=== PATIENT | male | born 1980 | race Asian ===

== ENCOUNTER 2017-12-22 16:29 | Outpatient (CLI) | payer OTHER ==
--- NOTE | 2017-12-23 09:35 | MRI Report ---
EXAM: RIGHT ELBOW MRI WITHOUT CONTRAST EXAM DATE: 12/22/2017 05:19 PM. CLINICAL HISTORY: R ELBOW TENDONITIS. COMPARISON: None. TECHNIQUE: Multiplanar, multisequence T1-weighted and fluid-sensitive sequences of the elbow without contrast. Other: None. FINDINGS: Bones and articular surfaces: No significant joint effusion. No osteochondral lesions. No significant articular cartilage defects are seen. Marrow signal appears normal. Musculotendinous structures: Small amount of patchy increased intrasubstance signal associated with t he common extensor origin. The common flexor pronator origin appears normal. No intramuscular edema, atrophy or fatty replacement. The biceps, triceps and brachialis tendons appear intact. Ligaments: The ulnar collateral, radial collateral and lateral collateral ligaments appear intact. IMPRESSION: Mild tendinosis at the common extensor origin. [facility] MUSCULOSKELETAL RADIOLOGY SECTION Referring Provider Line: [phone] SITE ID: [id number]
== END 2017-12-22 16:30 | disposition home or self-care (01) ==
LOC: DI 16:29
PROVIDERS: ATTEND Allergy & Immunology Allergy
DX: M77.8 Other enthesopathies, not elsewhere classified (principal)

== ENCOUNTER 2018-12-29 15:45 | Outpatient (CLI) | payer OTHER | END 2018-12-29 15:46 | disposition critical access hospital (66) | LOC: EMS 15:45 | PROVIDERS: ATTEND Surgery | DX: R41.82 Altered mental status, unspecified (principal) | CPT/HCPCS: A0425; A0427 ==

== ENCOUNTER 2018-12-29 15:57 | Inpatient (IN) | payer OTHER ==
[2018-12-29] MEDS ORDERED: SODIUM CHLORIDE 0.9% 1,000 ML IV ONE ×2 (15:59→19:03)
--- NOTE | 2018-12-29 16:02 | ED Physician Documentation ---
PD HPI ALTERED MENTAL STATUS - Stated complaint Stated Complaint: OD - History obtained from History obtained from: EMS - History of Present Illness Timing - onset: Today (Within the last half hour to hour he took reportedly some number of Ambien trying to sleep. The number was variable per EMS, may be 4. There is no mention of suicidal ideation or self-harm. He presents by ambulance now fairly somnolent and I am unable to obtain any history from the patient.) Review of Systems Unable to obtain: Confused PD PAST MEDICAL HISTORY - Past Medical History Past Medical History: Yes Cardiovascular: Other (Elevated liver enzymes and PTSD) - Present Medications Home Medications: Ambulatory Orders Medication Instructions Recorded Confirmed Home Medications Unobtainable 12/29/18 12/29/18 [HOME MEDICATIONS UNOBTAINABLE] - Allergies Allergies/Adverse Reactions: Allergies Allergy/AdvReac Type Severity Reaction Status Date / Time Unable to Assess Allergy Verified 12/29/18 16:10 - Living Situation Living Situation: reports: With spouse/s.o. - Social History Does the pt drink ETOH?: Yes - Family History Family history: reports: Non contributory PD ED PE NORMAL - Vitals Vital signs reviewed: Yes - General General: Other (He is somnolent he can open his eyes briefly to verbal stimulus but then falls right back asleep.) - HEENT HEENT: PERRL - Neck Neck: Supple, no meningeal sign, No bony TTP - Cardiac Cardiac: RRR, No murmur - Respiratory Respiratory: No respiratory distress, Clear bilaterally - Abdomen Abdomen: Non tender - Back Back: No CVA TTP, No spinal TTP - Derm Derm: Normal color, Warm and dry - Extremities Extremities: No edema, No calf tenderness / cord - Neuro Eye Opening: To Voice Motor: Obeys Commands Verbal: Confused GCS Score: 13 Results - Vitals Vitals: Vital Signs - 24 hr 12/29/18 12/29/18 12/29/18 15:59 16:01 16:13 Temperature 36.9 C Heart Rate 111 H 105 H Respiratory 21 18 Rate Blood Pressure 129/74 129/74 O2 Saturation 96 98 98 12/29/18 12/29/18 12/29/18 16:26 16:40 17:10 Temperature Heart Rate 114 H 131 H 101 H Respiratory 16 18 20 Rate Blood Pressure 139/76 H 131/69 H 133/76 H O2 Saturation 98 98 97 Oxygen O2 Source Nasal cannula - EKG (time done) 1606 Rate: Rate (enter#) (112) Rhythm: NSR [place]: LAD Intervals: Normal PA QRS: Normal Ischemia: Normal ST segments Computer interpretation: Agree with computer - Labs Labs: Laboratory Tests 12/29/18 12/29/18 12/29/18 16:07 16:07 16:07 WBC 5.1 RBC 4.67 L Hgb 14.3 Hct 43.1 MCV 92.3 MCH 30.7 MCHC 33.2 RDW 12.6 Plt Count 266 MPV 8.0 Neut # (Auto) 2.0 Lymph # (Auto) 2.6 [place] # (Auto) 0.4 Eos # (Auto) 0.1 Baso # (Auto) 0.0 Absolute Nucleated RBC 0.00 Nucleated RBC % 0.1 PT 12.4 INR 1.1 Sodium 138 Potassium 3.8 Chloride 100 L Carbon Dioxide 26 Anion Gap 12.0 BUN 11 Creatinine 1.1 Estimated GFR (MDRD) 75 L Glucose 148 H Calcium 8.2 L Total Bilirubin 0.2 AST 119 H ALT 124 H Alkaline Phosphatase 115 Total Creatine Kinase 392 H Total Protein 7.7 Albumin 4.1 Globulin 3.6 Albumin/Globulin Ratio 1.1 Lipase 40 TSH Salicylates < 6.0 Acetaminophen < 10 L Ethyl Alcohol 212.3 12/29/18 16:07 WBC RBC Hgb Hct MCV MCH MCHC RDW Plt Count MPV Neut # (Auto) Lymph # (Auto) [place] # (Auto) Eos # (Auto) Baso # (Auto) Absolute Nucleated RBC Nucleated RBC % PT INR Sodium Potassium Chloride Carbon Dioxide Anion Gap BUN Creatinine Estimated GFR (MDRD) Glucose Calcium Total Bilirubin AST ALT Alkaline Phosphatase Total Creatine Kinase Total Protein Albumin Globulin Albumin/Globulin Ratio Lipase TSH 1.46 Salicylates Acetaminophen Ethyl Alcohol PD MEDICAL DECISION MAKING - ED course ED course: This is a 38-year-old gentleman presents after an intentional Ambien overdose but without reported intention of self-harm. He is obtunded but protecting his airway. He will require a prolonged period of his observation for airway monitoring and likely eventual social work consultation. Spoke with Dr. Haney for observation at 5:25 PM. Departure - Departure Disposition: ED Place in Observation Clinical Impression: Delirium Medication overdose Qualifiers: Encounter type: initial encounter Injury intent: undetermined intent Qualified Code(s): T50.904A - Poisoning by unspecified drugs, medicaments and biological substances, undetermined, initial encounter Condition: Serious
[2018-12-29 16:23] LABS: BASOPHILS % (AUTO) 0.8 %; EOSINOPHILS # (AUTO) 0.1 10^3/uL (0.0-0.7); EOSINOPHILS % (AUTO) 2.5 %; HGB - HEMOGLOBIN 14.3 g/dL (14.0-18.0); LYMPHOCYTES # (AUTO) 2.6 10^3/uL (1.5-3.5); LYMPHOCYTES % (AUTO) 50.4 %; MEAN CORPUSCULAR HEMOGLOBIN 30.7 pg (27.0-31.0); MEAN CORPUSCULAR HGB CONC 33.2 g/dL (32.0-36.0); MEAN CORPUSCULAR VOLUME 92.3 fL (80.0-94.0); MONOCYTES # (AUTO) 0.4 10^3/uL (0.0-1.0); MONOCYTES % (AUTO) 7.2 %; NEUTROPHILS % (AUTO) 39.1 %; PLT - PLATELET COUNT 266 10^3/uL (130-450); RED BLOOD COUNT 4.67 10^6/uL (4.70-6.10); RED CELL DISTRIBUTION WIDTH 12.6 % (12.0-15.0); WHITE BLOOD COUNT 5.1 x10^3/uL (4.8-10.8)
[2018-12-29 16:36] LABS: INR 1.1 (0.8-1.2); PT - PROTHROMBIN TIME 12.4 secs (9.9-12.6)
[2018-12-29 16:38] LABS: ACETAMINOPHEN < 10 ug/mL (10-30); ALBUMIN 4.1 g/dL (3.2-5.5); ALBUMIN/GLOBULIN RATIO 1.1 (1.0-2.2); ALKALINE PHOSPHATASE 115 IU/L (42-121); ALT ALANINE AMINOTRANSFERASE 124 IU/L (10-60); AST ASPARTATE AMINOTRANSFERASE 119 IU/L (10-42); BILIRUBIN,TOTAL 0.2 mg/dL (0.2-1.0); BUN - BLOOD UREA NITROGEN 11 mg/dL (6-20); CALCIUM 8.2 mg/dL (8.5-10.3); CARBON DIOXIDE - CO2 26 mmol/L (21-32); CHLORIDE 100 mmol/L (101-111); CK- CREATINE KINASE 392 IU/L (22-269); CREATININE 1.1 mg/dL (0.6-1.2); GFR - MDRD 75 (>89); GLUCOSE 148 mg/dL (70-100); LIPASE 40 U/L (22-51); SALICYLATE < 6.0 mg/dL; SODIUM 138 mmol/L (135-145); TOTAL PROTEIN 7.7 g/dL (6.7-8.2)
[2018-12-29 17:44] LABS: MUDS CUTOFF CONCENTRATIONS CUTOFF CONC BELOW:
[2018-12-29 17:48] LABS: BILIRUBIN,URINE NEGATIVE (NEGATIVE); GLUCOSE, URINE (UA) NEGATIVE (NEGATIVE); KETONES,URINE (UA) NEGATIVE (NEGATIVE); LEUKOCYTE ESTERASE, URINE NEGATIVE (NEGATIVE); NITRITE,URINE NEGATIVE (NEGATIVE); OCCULT BLOOD,URINE NEGATIVE (NEGATIVE); PROTEIN,URINE NEGATIVE (NEGATIVE); UROBILINOGEN,URINE 0.2 (NORMAL) E.U./dL (NORMAL)
[2018-12-29 17:53] LABS: CLARITY,URINE CLEAR (CLEAR)
[2018-12-29] MEDS ORDERED: ONDANSETRON ODT 4 MG TABLET TL PRN (17:54)
[2018-12-29] MEDS ORDERED: FOLIC ACID INJ 1 MG, THIAMINE INJ 100 MG, MAGNESIUM SULFATE 2 GM, MULTIVITAMIN 10 ML in... IV STA ×5 (17:54)
[2018-12-29] MEDS ORDERED: ONDANSETRON 4 MG/2 ML VIAL IVP PRN (17:54)
[2018-12-29 17:57] LABS: AMPHETAMINE SCREEN,URINE NEGATIVE (NEGATIVE); BENZODIAZEPINES SCREEN, URINE NEGATIVE (NEGATIVE); COCAINE SCREEN URINE NEGATIVE (NEGATIVE); METHADONE SCREEN, URINE NEGATIVE (NEGATIVE); METHAMPHETAMINES SCREEN, URINE NEGATIVE (NEGATIVE); OPIATE SCREEN, URINE NEGATIVE (NEGATIVE); OXYCODONE SCREEN, URINE NEGATIVE (NEGATIVE); PROPOXYPHENE SCREEN, URINE NEGATIVE (NEGATIVE); TRICYCLIC ANTIDEPRESSANT,URINE NEGATIVE (NEGATIVE)
[2018-12-29] MEDS ORDERED: SODIUM CHLORIDE 0.9% 1,000 ML IV SCH (18:00)
[2018-12-29] MEDS: CHLORHEXIDINE GLUCONATE 15 ML UDC PO SCH (20:52)
--- NOTE | 2018-12-29 21:05 | HISTORY & PHYSICAL EXAMINATION ---
DATE OF SERVICE: 12/29/2018 Physician: Lissy Haney MD PRIMARY CARE PHYSICIAN: [facility]. ADMITTING PROVIDER: Lissy Haney MD CHIEF COMPLAINT: Confusion, slurred speech, stumbling gait. HISTORY OF PRESENT ILLNESS: This gentleman is a 38-year-old [place] who has PTSD, chronic pain syndro me, depression with a history of alcohol abuse. Unfortunately, he has not seen a provider in maybe a couple of years, according to his . He has not been following up with his psychiatrist for his PTSD. He drinks up to a 6 pack a day of beer, and occasionally adds a medium box of chardonnay on to p of that. He occasionally smokes cigarettes with his drinking, but mainly chews tobacco all day genaro g. He has obstructive sleep apnea and is supposed to be wearing a CPAP mask. In combination of his alcohol abuse, and his drugs, his will find him at times stumbling around at night, confused. He is looking for his pills because he has forgotten that he has taken them. Ma ny times she has been able to direct his attention and prompt him to do something else when she tells him that she gave him his pills. He just forgot. This time, she came home and found him stumbling around the house, again looking for pills. Going through the medicine cabinet. He just wanted to sl eep. As the afternoon progressed, his said that he was getting sleepier, more and more slurred speech, and unable to be aroused. She says this is the worst he has ever been and it alarmed her. S he brought him to the emergency room. In the emergency room, he was evaluated by Dr. Casillas. He has been tachycardic, starting to have mild hypertension as the evening has gone on. He started out at 129 systolic and is now up to 148 systolic. Respiratory rate is sonorous, episodes of apnea, severe snoring. Rate is about 18-20. He is 96-98% on 2 liters nasal cannula. Initially, he was able to gi ve a few simple word answers to the triage nurse, but as the afternoon has gone on with Dr. Casillas, t he patient is getting increasingly somnolent and right now we are unable to arouse him as he sleeps w ith horrific snoring. His labs show him to have elevated liver enzymes with AST 119, ALT 124. Bilir ubin is normal. CBC is normal. INR is 1.1. Urinalysis is normal. Toxicology screen has ethyl alco hol of 212.3 with positive cannabinoids and all else negative. The drug list of what he may have edgar en accidentally is Ambien, duloxetine, prazosin, gabapentin and then on top of this, his alcohol. He is now admitted for accidental overdose of polysubstances. PAST MEDICAL HISTORY 1. Hypertension. 2. Posttraumatic stress disorder. 3. Obstructive sleep apnea. 4. Obesity since fpc. 5. Chronic pain syndrome from head-to-toe for which he is 100% service connected. 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 MEDICATIONS: Unknown doses of Ambien, duloxetine, prazosin, gabapentin and alcohol. His knows that he takes 3 gabapentin 3 times a day. SOCIAL HISTORY: He lives with his . They have been for 21 years. He is retired [employer]. 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 They have 2 children who are 17 and 19. Alcohol abuse is reviewed as above. Again, tobacco use is reviewed a s above. He does occasional cannabis. No history of cocaine, heroin, LSD, methamphetamines. She relates that it has been increasingly difficult to be in this marriage. While he has never been physically abusive, his acute intoxication results in verbal assessment of she and the kids. It is g etting to the point where they want nothing to do with him. He is drunk all the time and disengaged from family when he is home and not working. FAMILY HISTORY: Mom at age 53 of heart failure after a valve replacement failed. Dad at age 50 of a sudden heart attack. He has 3 sisters and 1 brother. They are all drink, they all smoke. There is no history of diabetes , cancer, heart attack, or stroke in them. The 17 and 19-year-old children are healthy. REVIEW OF SYSTEMS: Unobtainable at this time. The above history is obtained from his . The pat iesenthil is currently unresponsive other than to deep sternal rub. He will occasionally move his extremi ties spontaneously, but not able to answer my questions. PHYSICAL EXAMINATION VITAL SIGNS: Temperature is 36.9, pulse is 109, blood pressure 148/66, respirations 16, he is 99% sa turated on 2 L. GENERAL: He is a tall, morbidly obese [place] male, unshaven, disheveled, lying at about 25-30 degree s with deep snoring respirations and occasional 15 seconds of apnea. HEAD AND NECK: Unremarkable other than dry oral mucosa, but otherwise pink. Slack, but symmetrical facial tone. Pupils are sluggish, but reactive. Sclerae muddy and injected, but no icterus. Neck i s too thick to assess for JVD. There is no stiffness. I do not feel adenopathy. I cannot hear anyt cristy above his snoring to listen for bruits. LUNGS: Diminished breath sounds at the bases, there is no increased respiratory effort. Most of his breath sounds I can hear in the upper back and are clear. CARDIAC: Distant cardiac tones, I cannot feel his PMI. He has a fast regular rate and rhythm. I do not hear murmurs. ABDOMEN: Huge, pannus obese, soft, normal hypoactive bowel sounds. I do not feel any hepatomegaly, but his pannus is too large for me to really assess for organ enlargement. There does not seem to be any rebound or grimacing of pain as I do deep palpation. EXTREMITIES: Bilateral lateral vertical scars on either side of his calves. His said that he s eemed to have had some type of muscle release that I think she is describing a fasciotomy because of bilateral leg edema that was so severe he was losing circulation in his calves. Right now, he has fi rm musculature. No clubbing, cyanosis or edema. Occasional tattoos. NEUROLOGIC: This gentleman is responsive to deep sternal rub. Occasionally, he opens his eyes to hi s 's voice and grunts and then goes back to sleep. He was more verbal earlier when he came in. Spontaneously, he does move his extremities when he wants to make himself comfortable in his sleep. He will push away noxious stimuli. He will bend and relax his knees in an effort to get comfortable on this gurney that is tiny in the ER. LABORATORY DATA: CBC is normal. INR 1.1. Sodium 138, potassium 3.8, chloride 100, BUN 11, creatini ne 1.1, random glucose 148. Total bilirubin 0.2, AST 119, ALT 124, alkaline phosphatase 115. CK 392 . TSH 1.46. Urinalysis completely negative. Toxicology screen as above. ASSESSMENT/PLAN 1. Acute metabolic encephalopathy secondary to polysubstance use. The culprit will be mixing of all of his drugs plus alcohol. He is deeply asleep, snores. I do not think a CT of the head is in orde r. There is no evidence of infection. There is no severe electrolyte abnormality. PLAN a. Acute inpatient stay. b. Attestation that the patient will be evaluated within 96 hours for discharge. c. Supportive care until encephalopathy resolves. 2. Polysubstance overdose with the above medications on his medication list. Then, on top of that a lcohol. PLAN: We will do an EKG tomorrow morning to make sure QT is not prolonged. He will stay on telemetr y. We will need to monitor his blood pressure for the prazosin effects resulting in hypotension and tachycardia. Supportive care for that is just simple IV fluids. We will monitor for seizures becaus e of drug interaction. Consider giving magnesium if EKG becomes abnormal or he begins having arrhyth mias. 3. Obstructive sleep apnea. Has a home CPAP mask. PLAN: I have asked the to return to home. I explained to her that if she can bring in his CPAP mask, he can stay on med/surg. However, if she cannot bring back the CPAP mask, I am going to have to place him in ICU for our use of BiPAP or CPAP. 4. Posttraumatic stress disorder, depression, and lack of followup with Psychiatry with noncomplianc e. PLAN: Once he is awake, consider tele/psych opinion. I will also try and find his psychiatrist and update him. 5. Elevated liver function studies. PLAN: Most likely from alcoholic hepatitis. Monitor levels tomorrow. Check acute hepatitis panel f or hepatitis A, B and C. He does not have a risk because of IV drug abuse, nor has he received any r ecent blood transfusion. Check ultrasound. His large pannus may make it difficult for them to do an ultrasound. Nevertheless, look for signs of cirrhosis. 6. Acute alcohol intoxication by laboratory values. PLAN: a. As above, ultrasound, check for cirrhosis. b. Give a banana bag. c. Has never gone through withdrawals, but his comments that he has never stopped drinking to go through withdrawals. Considering he is going to be in the hospital for the next 48 hours, we w ill closely monitor. Move to ICU for CIWA protocol if requires Ativan drip. 7. Deep venous thrombosis prophylaxis with Lovenox. 8. FULL CODE STATUS. TD: 12/29/2018 18:50
[2018-12-30] MEDS: SODIUM CHLORIDE FLUSH 0.9% 10 ML SYRINGE IVP SCH ×3 (00:27→20:04)
[2018-12-30 06:00] LABS: BASOPHILS % (AUTO) 0.5 %; EOSINOPHILS # (AUTO) 0.2 10^3/uL (0.0-0.7); EOSINOPHILS % (AUTO) 2.2 %; LYMPHOCYTES # (AUTO) 2.2 10^3/uL (1.5-3.5); LYMPHOCYTES % (AUTO) 25.5 %; MEAN CORPUSCULAR HEMOGLOBIN 30.4 pg (27.0-31.0); MEAN CORPUSCULAR HGB CONC 33.1 g/dL (32.0-36.0); MEAN CORPUSCULAR VOLUME 91.9 fL (80.0-94.0); MEAN PLATELET VOLUME 7.9 fL (7.4-11.4); MONOCYTES # (AUTO) 0.6 10^3/uL (0.0-1.0); MONOCYTES % (AUTO) 6.8 %; NEUTROPHILS # (AUTO) 5.7 10^3/uL (1.5-6.6); PLT - PLATELET COUNT 255 10^3/uL (130-450); RED BLOOD COUNT 4.61 10^6/uL (4.70-6.10); RED CELL DISTRIBUTION WIDTH 12.6 % (12.0-15.0); WHITE BLOOD COUNT 8.8 x10^3/uL (4.8-10.8)
[2018-12-30 06:08] LABS: ALBUMIN 3.9 g/dL (3.2-5.5); ALBUMIN/GLOBULIN RATIO 1.2 (1.0-2.2); CALCIUM 8.3 mg/dL (8.5-10.3); CREATININE 0.8 mg/dL (0.6-1.2); TOTAL PROTEIN 7.1 g/dL (6.7-8.2)
[2018-12-30] MEDS: PANTOPRAZOLE 40 MG VIAL IVP SCH (06:54)
[2018-12-30] MEDS: SODIUM CHLORIDE FLUSH 0.9% 10 ML SYRINGE IVP PRN ×2 (06:55→09:12)
--- NOTE | 2018-12-30 07:45 | PROVIDER PROGRESS NOTE ---
Subjective - Prog Note Date Prog Note Date: 12/30/18 Prog Note Time: 07:43 - Subjective Subjective: still sedated. sleepy. does respond to sternal rub. brought in CPAP mask and we are using it even during the day since he is sleeping. Current Medications - Current Medications Current Medications: Active Medications Chlorhexidine Gluconate (Peridex) 15 ml PO BID [facility] Last Admin: 12/29/18 20:52 Dose: Not Given Enoxaparin Sodium (Lovenox) 40 mg SUBQ DAILY [facility] Multivitamins 10 ml/ Folic Acid 1 mg/ Thiamine HCl 100 mg / Magnesium Sulfate 2 gm/Sodium Chloride 1,015.2 mls @ 100 mls/hr IV DAILY [facility] Ondansetron HCl (Zofran Inj) 4 mg IVP Q6HR PRN PRN Reason: Nausea / Vomiting Ondansetron HCl (Zofran Odt) 4 mg TL Q6HR PRN PRN Reason: Nausea / Vomiting Pantoprazole Sodium (Protonix) 40 mg IVP QDAC [facility] Last Admin: 12/30/18 06:54 Dose: 40 mg Polyethylene Glycol (Miralax) 17 gm PO DAILY [facility] Sodium Chloride (Normal Saline Flush 0.9%) 10 ml IVP PRN PRN PRN Reason: NEEDED PER PROVIDER ORDERS Last Admin: 12/30/18 06:55 Dose: 10 ml Sodium Chloride (Normal Saline Flush 0.9%) 10 ml IVP 0100,0900,1700 [facility] Last Admin: 12/30/18 06:54 Dose: 10 ml Tamsulosin HCl (Flomax) 0.4 mg PO DAILY [facility] Home Medications Unobtainable [HOME MEDICATIONS UNOBTAINABLE] 12/29/18 Objective - Vital Signs/Intake & Output Reviewed Vital Signs: Yes Vital Signs: Vital Signs x48h Temp Pulse Resp BP Pulse Ox 12/30/18 05:36 36.7 C 113 H 18 130/73 95 Intake & Output: Intake & Output 12/27/18 12/28/18 12/29/18 12/30/18 23:59 23:59 23:59 23:59 Intake Total 587.5 Output Total 1050 1500 Balance -462.5 -1500 - Objective General Appearance: positive: No acute distress, Lethargic (does squint at voice request to open eyes. no longer with the very very loud snoring.) Eyes Bilateral: positive: PERRL ENT: positive: Dry mucous membranes Neck: positive: No JVD, Lymphadenopathy (R), Lymphadenopathy (L). negative: Stiff neck, Carotid bruit Respiratory: positive: Chest non-tender, No respiratory distress (dimished sounds at bases). negative: Wheezes, Rales, Rhonchi Cardiovascular: positive: Regular rate & rhythm. negative: Gallop/S4, Friction rub Abdomen: positive: Non-tender, Nml bowel sounds, No distention. negative: Guarding, Rebound Skin: positive: Warm, Dry Extremities: positive: Full ROM, No pedal edema Neurologic/Psychiatric: positive: Other (sleeping, sedated. responds to voice sometimes, def responds to sternal rub and gets annoyed.) - Lab Results Fish Bones: 12/30/18 05:45 12/30/18 05:45 Other Labs: Lab Results x24hrs 12/30/18 12/30/18 12/29/18 Range/Units 05:45 05:45 17:30 WBC 8.8 (4.8-10.8) x10^3/uL RBC 4.61 L (4.70-6.10) 10^6/uL Hgb 14.0 (14.0-18.0) g/dL Hct 42.3 (42.0-52.0) % MCV 91.9 (80.0-94.0) fL MCH 30.4 (27.0-31.0) pg MCHC 33.1 (32.0-36.0) g/dL RDW 12.6 (12.0-15.0) % Plt Count 255 (130-450) 10^3/uL MPV 7.9 (7.4-11.4) fL Neut # (Auto) 5.7 (1.5-6.6) 10^3/uL Lymph # (Auto) 2.2 (1.5-3.5) 10^3/uL [place] # (Auto) 0.6 (0.0-1.0) 10^3/uL Eos # (Auto) 0.2 (0.0-0.7) 10^3/uL Baso # (Auto) 0.0 (0.0-0.1) 10^3/uL Absolute Nucleated RBC 0.01 x10^3/uL Nucleated RBC % 0.1 /100WBC PT (9.9-12.6) secs INR (0.8-1.2) Sodium 137 (135-145) mmol/L Potassium 3.8 (3.5-5.0) mmol/L Chloride 104 (101-111) mmol/L Carbon Dioxide 22 (21-32) mmol/L Anion Gap 11.0 (6-13) BUN 13 (6-20) mg/dL Creatinine 0.8 (0.6-1.2) mg/dL Estimated GFR (MDRD) 108 (>89) Glucose 129 H (70-100) mg/dL Calcium 8.3 L (8.5-10.3) mg/dL Total Bilirubin 1.0 (0.2-1.0) mg/dL AST 86 H (10-42) IU/L ALT 102 H (10-60) IU/L Alkaline Phosphatase 90 (42-121) IU/L Total Creatine Kinase (22-269) IU/L Total Protein 7.1 (6.7-8.2) g/dL Albumin 3.9 (3.2-5.5) g/dL Globulin 3.2 (2.1-4.2) g/dL Albumin/Globulin Ratio 1.2 (1.0-2.2) Lipase (22-51) U/L TSH (0.34-5.60) uIU/mL Urine Color YELLOW Urine Clarity CLEAR (CLEAR) Urine pH 6.0 (5.0-7.5) PH Ur Specific [place] 1.020 (1.002-1.030) Urine Protein NEGATIVE (NEGATIVE) mg/dL Urine Glucose (UA) NEGATIVE (NEGATIVE) mg/dL Urine Ketones NEGATIVE (NEGATIVE) mg/dL Urine Occult Blood NEGATIVE (NEGATIVE) Urine Nitrite NEGATIVE (NEGATIVE) Urine Bilirubin NEGATIVE (NEGATIVE) Urine Urobilinogen 0.2 (NORMAL) (NORMAL) E.U./dL Ur Leukocyte Esterase NEGATIVE (NEGATIVE) Ur Microscopic Review NOT INDICATED Urine Culture Comments NOT INDICATED Salicylates mg/dL Urine Opiates Screen NEGATIVE (NEGATIVE) Ur Oxycodone Screen NEGATIVE (NEGATIVE) Urine Methadone Screen NEGATIVE (NEGATIVE) Ur Propoxyphene Screen NEGATIVE (NEGATIVE) Acetaminophen (10-30) ug/mL Ur Barbiturates Screen NEGATIVE (NEGATIVE) Ur Tricyclics Screen NEGATIVE (NEGATIVE) Ur Phencyclidine Scrn NEGATIVE (NEGATIVE) Ur Amphetamine Screen NEGATIVE (NEGATIVE) U Methamphetamines Scrn NEGATIVE (NEGATIVE) U Benzodiazepines Scrn NEGATIVE (NEGATIVE) Urine Cocaine Screen NEGATIVE (NEGATIVE) U Cannabinoids Screen POSITIVE H (NEGATIVE) Ethyl Alcohol mg/dL 12/29/18 12/29/18 12/29/18 Range/Units 16:07 16:07 16:07 WBC (4.8-10.8) x10^3/uL RBC (4.70-6.10) 10^6/uL Hgb (14.0-18.0) g/dL Hct (42.0-52.0) % MCV (80.0-94.0) fL MCH (27.0-31.0) pg MCHC (32.0-36.0) g/dL RDW (12.0-15.0) % Plt Count (130-450) 10^3/uL MPV (7.4-11.4) fL Neut # (Auto) (1.5-6.6) 10^3/uL Lymph # (Auto) (1.5-3.5) 10^3/uL [place] # (Auto) (0.0-1.0) 10^3/uL Eos # (Auto) (0.0-0.7) 10^3/uL Baso # (Auto) (0.0-0.1) 10^3/uL Absolute Nucleated RBC x10^3/uL Nucleated RBC % /100WBC PT 12.4 (9.9-12.6) secs INR 1.1 (0.8-1.2) Sodium 138 (135-145) mmol/L Potassium 3.8 (3.5-5.0) mmol/L Chloride 100 L (101-111) mmol/L Carbon Dioxide 26 (21-32) mmol/L Anion Gap 12.0 (6-13) BUN 11 (6-20) mg/dL Creatinine 1.1 (0.6-1.2) mg/dL Estimated GFR (MDRD) 75 L (>89) Glucose 148 H (70-100) mg/dL Calcium 8.2 L (8.5-10.3) mg/dL Total Bilirubin 0.2 (0.2-1.0) mg/dL AST 119 H (10-42) IU/L ALT 124 H (10-60) IU/L Alkaline Phosphatase 115 (42-121) IU/L Total Creatine Kinase 392 H (22-269) IU/L Total Protein 7.7 (6.7-8.2) g/dL Albumin 4.1 (3.2-5.5) g/dL Globulin 3.6 (2.1-4.2) g/dL Albumin/Globulin Ratio 1.1 (1.0-2.2) Lipase 40 (22-51) U/L TSH 1.46 (0.34-5.60) uIU/mL Urine Color Urine Clarity (CLEAR) Urine pH (5.0-7.5) PH Ur Specific [place] (1.002-1.030) Urine Protein (NEGATIVE) mg/dL Urine Glucose (UA) (NEGATIVE) mg/dL Urine Ketones (NEGATIVE) mg/dL Urine Occult Blood (NEGATIVE) Urine Nitrite (NEGATIVE) Urine Bilirubin (NEGATIVE) Urine Urobilinogen (NORMAL) E.U./dL Ur Leukocyte Esterase (NEGATIVE) Ur Microscopic Review Urine Culture Comments Salicylates < 6.0 mg/dL Urine Opiates Screen (NEGATIVE) Ur Oxycodone Screen (NEGATIVE) Urine Methadone Screen (NEGATIVE) Ur Propoxyphene Screen (NEGATIVE) Acetaminophen < 10 L (10-30) ug/mL Ur Barbiturates Screen (NEGATIVE) Ur Tricyclics Screen (NEGATIVE) Ur Phencyclidine Scrn (NEGATIVE) Ur Amphetamine Screen (NEGATIVE) U Methamphetamines Scrn (NEGATIVE) U Benzodiazepines Scrn (NEGATIVE) Urine Cocaine Screen (NEGATIVE) U Cannabinoids Screen (NEGATIVE) Ethyl Alcohol 212.3 mg/dL 12/29/18 Range/Units 16:07 WBC 5.1 (4.8-10.8) x10^3/uL RBC 4.67 L (4.70-6.10) 10^6/uL Hgb 14.3 (14.0-18.0) g/dL Hct 43.1 (42.0-52.0) % MCV 92.3 (80.0-94.0) fL MCH 30.7 (27.0-31.0) pg MCHC 33.2 (32.0-36.0) g/dL RDW 12.6 (12.0-15.0) % Plt Count 266 (130-450) 10^3/uL MPV 8.0 (7.4-11.4) fL Neut # (Auto) 2.0 (1.5-6.6) 10^3/uL Lymph # (Auto) 2.6 (1.5-3.5) 10^3/uL [place] # (Auto) 0.4 (0.0-1.0) 10^3/uL Eos # (Auto) 0.1 (0.0-0.7) 10^3/uL Baso # (Auto) 0.0 (0.0-0.1) 10^3/uL Absolute Nucleated RBC 0.00 x10^3/uL Nucleated RBC % 0.1 /100WBC PT (9.9-12.6) secs INR (0.8-1.2) Sodium (135-145) mmol/L Potassium (3.5-5.0) mmol/L Chloride (101-111) mmol/L Carbon Dioxide (21-32) mmol/L Anion Gap (6-13) BUN (6-20) mg/dL Creatinine (0.6-1.2) mg/dL Estimated GFR (MDRD) (>89) Glucose (70-100) mg/dL Calcium (8.5-10.3) mg/dL Total Bilirubin (0.2-1.0) mg/dL AST (10-42) IU/L ALT (10-60) IU/L Alkaline Phosphatase (42-121) IU/L Total Creatine Kinase (22-269) IU/L Total Protein (6.7-8.2) g/dL Albumin (3.2-5.5) g/dL Globulin (2.1-4.2) g/dL Albumin/Globulin Ratio (1.0-2.2) Lipase (22-51) U/L TSH (0.34-5.60) uIU/mL Urine Color Urine Clarity (CLEAR) Urine pH (5.0-7.5) PH Ur Specific [place] (1.002-1.030) Urine Protein (NEGATIVE) mg/dL Urine Glucose (UA) (NEGATIVE) mg/dL Urine Ketones (NEGATIVE) mg/dL Urine Occult Blood (NEGATIVE) Urine Nitrite (NEGATIVE) Urine Bilirubin (NEGATIVE) Urine Urobilinogen (NORMAL) E.U./dL Ur Leukocyte Esterase (NEGATIVE) Ur Microscopic Review Urine Culture Comments Salicylates mg/dL Urine Opiates Screen (NEGATIVE) Ur Oxycodone Screen (NEGATIVE) Urine Methadone Screen (NEGATIVE) Ur Propoxyphene Screen (NEGATIVE) Acetaminophen (10-30) ug/mL Ur Barbiturates Screen (NEGATIVE) Ur Tricyclics Screen (NEGATIVE) Ur Phencyclidine Scrn (NEGATIVE) Ur Amphetamine Screen (NEGATIVE) U Methamphetamines Scrn (NEGATIVE) U Benzodiazepines Scrn (NEGATIVE) Urine Cocaine Screen (NEGATIVE) U Cannabinoids Screen (NEGATIVE) Ethyl Alcohol mg/dL Assessment/Plan - Problem List (1) Acute metabolic encephalopathy Impression: secondary to polysubstance abuse and accidental OD. Change on exam is more response to voice and noxious stimuli. Able to state a few words now and didn't yesterday. No snoring today. So slowly improving. Plan: Supportive care to continue (2) Medication overdose Impression: from prazosin, cymbalta, gabapentin, ambien. He has been on telemetry, IV fluids. So far QT interval is stable and is shorter than last nice interval on EKG. This morning the EKG stable. Telemetry shows no arrhythmia.No seizures Plan: Stop telemetry, continue IV fluids until more awake and eating p.o. Qualifiers: Encounter type: initial encounter Injury intent: accidental or unintentional Qualified Code(s): T50.901A - Poisoning by unspecified drugs, medicaments and biological substances, accidental (unintentional), initial encounter (3) RAFAT on CPAP Impression: brought in mask from home. He has been on it since he was here last night. Continue until able to sit up and be conversant on his own without sleepiness. (4) Alcohol intoxication Impression: Repeat alcohol level for today. So far it remains uncomplicated. I really do feel he can go into delirium tremens as this is the first time is been without alcohol in decades as far as his is concerned. So far his blood pressures controlled, no diaphoresis, minimal tachycardia Plan: Continue banana bag Continue to monitor to make sure he does not going to delirium tremens. Qualifiers: Complication of substance-induced condition: uncomplicated Qualified Code(s): F10.920 - Alcohol use, unspecified with intoxication, uncomplicated (5) PTSD (post-traumatic stress disorder) Impression: Wait for him to wake up and then resume his usual medications. is not identified who his psychiatrist is that I may make contact with them. We will try again today. (6) Hyperglycemia Impression: He has most likely alcoholic liver disease. Overweight. Would not be surprised if he has diabetes. Plan: A1c in the morning (7) Alcoholic hepatitis Impression: He has elevated liver enzymes that I presume are from alcohol abuse. Acute hepatitis panel for A, B, and C is pending. I would like to do an ultrasound to make sure he does not have cirrhosis. Qualifiers: Ascites presence: without ascites Qualified Code(s): K70.10 - Alcoholic hepatitis without ascites
[2018-12-30] MEDS: CHLORHEXIDINE GLUCONATE 15 ML UDC PO SCH ×2 (08:14→20:04)
[2018-12-30] MEDS: TAMSULOSIN 0.4 MG CAPSULE PO SCH (08:14)
[2018-12-30] MEDS: ENOXAPARIN 40 MG/0.4 ML SYRINGE SUBQ SCH (08:15)
[2018-12-30] MEDS: MULTIVITAMIN 10 ML, FOLIC ACID INJ 1 MG, THIAMINE INJ 100 MG, MAGNESIUM SULFATE 2 GM in... IV SCH ×5 (09:08)
[2018-12-30] MEDS: POLYETHYLENE GLYCOL 3350 17 GM PACKET PO SCH (09:16)
[2018-12-30] MEDS ORDERED: METHOCARBAMOL 500 MG TABLET PO PRN (15:18)
[2018-12-30] MEDS ORDERED: NAPROXEN 250 MG TABLET PO PRN (15:18)
[2018-12-30] MEDS: PROPRANOLOL 10 MG TABLET PO SCH (20:03)
[2018-12-30] MEDS ORDERED: PRAZOSIN 1 MG CAPSULE PO SCH (21:00)
[2018-12-30] MEDS: GABAPENTIN 300 MG CAPSULE PO SCH (21:36)
[2018-12-31] MEDS: SODIUM CHLORIDE FLUSH 0.9% 10 ML SYRINGE IVP SCH ×2 (01:07→08:57)
--- NOTE | 2018-12-31 04:07 | Ultrasound Report ---
Reason: alcohol abuse, elev LFT, Procedure Date: 12/31/2018 Accession Number: [id number] / [id number] Procedure: US - Abdomen Complete CPT Code: FULL RESULT: EXAM: ABDOMEN ULTRASOUND EXAM DATE: 12/31/2018 03:33 AM. CLINICAL HISTORY: Alcohol abuse, abnormal LFT. COMPARISON: None. TECHNIQUE: Real-time scanning was performed with static images obtained. FINDINGS: Liver: Echogenic and heterogeneous. Echodense. 15.1 cm. Main portal vein flow: Hepatopetal. Gallbladder: Normal. No stones, wall thickening, or sonographic Amador's sign. Biliary System: Common bile duct measures 4.2 mm. No intrahepatic or extrahepatic ductal dilatation. Pancreas: Not well seen due to bowel gas. Kidneys: Right: 12.8 cm longitudinally. Normal. No contour-deforming mass, stones, or hydronephrosis. Left: 12.2 cm longitudinally. Normal. No contour-deforming mass, stones, or hydronephrosis. Spleen: 12.3 cm. Normal in size and echotexture. Aorta and Inferior Vena Cava: Unremarkable where seen. Other: Images are somewhat degraded due to bowel gas. IMPRESSION: 1. No cholelithiasis or cholecystitis identified. 2. Fatty liver. 3. No biliary dilatation seen. [facility]
[2018-12-31 05:48] LABS: BASOPHILS # (AUTO) 0.1 10^3/uL (0.0-0.1); BASOPHILS % (AUTO) 0.7 %; EOSINOPHILS # (AUTO) 0.3 10^3/uL (0.0-0.7); EOSINOPHILS % (AUTO) 3.9 %; HGB - HEMOGLOBIN 14.2 g/dL (14.0-18.0); LYMPHOCYTES # (AUTO) 2.5 10^3/uL (1.5-3.5); LYMPHOCYTES % (AUTO) 32.7 %; MEAN CORPUSCULAR HEMOGLOBIN 31.3 pg (27.0-31.0); MEAN CORPUSCULAR HGB CONC 34.2 g/dL (32.0-36.0); MEAN CORPUSCULAR VOLUME 91.5 fL (80.0-94.0); MONOCYTES # (AUTO) 0.7 10^3/uL (0.0-1.0); MONOCYTES % (AUTO) 9.2 %; NEUTROPHILS % (AUTO) 53.5 %; PLT - PLATELET COUNT 254 10^3/uL (130-450); RED BLOOD COUNT 4.53 10^6/uL (4.70-6.10); RED CELL DISTRIBUTION WIDTH 12.3 % (12.0-15.0); WHITE BLOOD COUNT 7.5 x10^3/uL (4.8-10.8)
[2018-12-31 05:55] LABS: ALBUMIN 3.9 g/dL (3.2-5.5); ALBUMIN/GLOBULIN RATIO 1.1 (1.0-2.2); BILIRUBIN,TOTAL 1.1 mg/dL (0.2-1.0); CALCIUM 9.1 mg/dL (8.5-10.3); CREATININE 0.9 mg/dL (0.6-1.2); TOTAL PROTEIN 7.3 g/dL (6.7-8.2)
[2018-12-31 05:58] LABS: HB2 TOTAL 15.5 g/dL; HEMOGLOBIN A1C 0.72 g/dL; HEMOGLOBIN A1C % 6.4 % (4.6-6.2)
[2018-12-31] MEDS: GABAPENTIN 300 MG CAPSULE PO SCH (07:14)
[2018-12-31] MEDS: PANTOPRAZOLE 40 MG VIAL IVP SCH (07:15)
[2018-12-31 07:46] VITALS: BP 141/100
[2018-12-31] MEDS: PROPRANOLOL 10 MG TABLET PO SCH (08:54)
[2018-12-31] MEDS: TAMSULOSIN 0.4 MG CAPSULE PO SCH (08:54)
[2018-12-31] MEDS: ENOXAPARIN 40 MG/0.4 ML SYRINGE SUBQ SCH (08:55)
[2018-12-31] MEDS: POLYETHYLENE GLYCOL 3350 17 GM PACKET PO SCH (08:55)
--- NOTE | 2018-12-31 08:55 | Discharge Plan ---
Discharge Plan Disposition: Home, Self Care Condition: Good Prescriptions: Folic Acid 1 mg PO DAILY #100 tablet Thiamine [Vitamin B-1] 100 mg PO DAILY #100 tablet traZODone [Desyrel] 50 mg PO HS #60 tablet Diet: Diabetic Activity Restrictions: Activity as Tolerated Shower Restrictions: No Driving Restrictions: No Additional Instructions or Follow Up instructions: You were admitted to the hospital because you were unconscious. A combination of alcohol, too much of your sleeping medicine (ambien), and your PTSD medicines caused you to go to sleep and not wake up. The main concern with that is that you will stop breathing. Fortunately, your found you in time, brought you into the hospital. All we did was watch you and give you your CPAP mask to help your breathing. You woke up on your own and did well. Do not take anymore Ambien. Do not drink any alcohol. I am giving you a new medicine to help you sleep at night in a different drug class than your Ambien. It is called trazodone. I have called in a prescription to the [place] and I have also written prescriptions for thiamine and folic acid. The vitamins are because of the alcohol abuse. It reduces your B vitamins, and I am going to supplement them. Please see your regular doctor in the next 2 weeks. I want them to check your blood pressure, see how you are doing on the trazodone. You have also met with the social sciences instructor here. She has given you some resources to help you with alcohol abuse and counselors. No Smoking: If you smoke, Please STOP! Call for help. Follow-up with: Provider,Other [Primary Care Provider] -
[2018-12-31] MEDS: CHLORHEXIDINE GLUCONATE 15 ML UDC PO SCH (08:56)
[2018-12-31] MEDS ORDERED: amLODIPine 5 MG TABLET PO SCH (09:00)
[2018-12-31] MEDS: MULTIVITAMIN 10 ML, FOLIC ACID INJ 1 MG, THIAMINE INJ 100 MG, MAGNESIUM SULFATE 2 GM in... IV SCH ×5 (11:34)
[2018-12-31 13:03] LABS: HEPATITIS A IGM NON-REACTIVE (NON-REACTIVE); HEPATITIS B CORE ANTIBODY IGM NON-REACTIVE (NON-REACTIVE); HEPATITIS B SURFACE ANTIGEN NON-REACTIVE (NON-REACTIVE); HEPATITIS C ANTIBODY NON-REACTIVE (NON-REACTIVE)
--- NOTE | 2018-12-31 14:17 | DISCHARGE SUMMARY ---
Physician: Lissy Haney MD DATE OF ADMISSION: 12/29/2018 DATE OF DISCHARGE: 12/31/2018 DISCHARGE DIAGNOSES 1. Acute metabolic encephalopathy secondary to #2. 2. Polysubstance accidental overdose. 3. Obstructive sleep apnea. 4. PTSD. 5. Depressive disorder. 6. Elevated liver function studies. 7. Acute alcohol intoxication. 8. Alcoholic hepatitis. PRINCIPAL PROCEDURES 1. Abdominal ultrasound showing no cholelithiasis or cholecystitis identified. Severely fatty liver . No biliary dilatation. 2. Acute hepatitis panel nonreactive to hepatitis A, B or C. DISCHARGE MEDICATIONS 1. Amlodipine 5 mg daily. 2. Cymbalta 60 mg p.o. b.i.d. 3. Neurontin 900 mg p.o. t.i.d. 4. Robaxin 500-1000 mg p.o. q.i.d. p.r.n. pain. 5. Naproxen 250 mg p.o. b.i.d. 6. Omeprazole 20 mg daily. 7. Prazosin 4 mg daily. 8. Propranolol 20 mg p.o. b.i.d. NEW PRESCRIPTIONS 1. Folic acid 1 mg daily. 2. Thiamine 100 mg p.o. daily. 3. Trazodone 50 mg p.o. at bedtime. MEDICATIONS DISCONTINUED: Ambien. HOSPITAL COURSE: The patient is a very pleasant, morbidly obese 38-year-old [place] male who takes mu ltiple drugs because of his chronic problems of pain, PTSD and depression. His says that he has not followed up with Psychiatry recently and seems to be approaching some type of crisis. He has be en drinking nonstop and drinks a 6-pack of beer a day, sometimes a 6-pack of beer plus a medium box o f chardonnay. He usually starts when he comes home from work. By the time it is getting ready to go to bed, he is intoxicated, slightly confused, will take his medications including his sleeping pill, Ambien, then forget he has taken them and wants to take them again. A few times, she has stopped hi m from doing that by reminding him that he has already taken it. This time she came home, it looked like he had already taken his medicines, and may have taken them 2 or 3 times from what she can tell. He gradually became more and more obtunded. She brought him into the hospital because of that. Th e medications that he took were Ambien, prazosin, Cymbalta and gabapentin. In the emergency room, he was normotensive, became hypertensive the next day at 151/100. His usual h ome medications were resumed. He also received IV hydralazine p.r.n. On examination in the emergenc y room, he was incredibly somnolent, minimally responsive to sternal rub and the voice of his . Horrible loud respirations with moments of apnea. He maintained his O2 saturations on room air. We placed him into the hospital initially in observation then changed him to inpatient status because he was not getting better. He remained sleepy until the second day of admission and finally woke up in the late afternoon/early evening of 12/30/2018. He was unable to take a full meal, be appropriat e and alert. On the morning of 12/31/2018, we went over his medications. I explained to them what t junitoy were all about. He was hypertensive because he had not taken his usual home medications and thos e were given to him. He did not know that prazosin was a high blood pressure drug. He did not know that his amlodipine was for high blood pressure. He said that he had gone to see his doctor a month ago, and 2 weeks later, he gets this medicine in the mail and he does not know what it is about. I e xplained to him what blood pressure means, why he has to take them, and that 2 different blood pressu re medications did not mean that they were overtreating him. He just may need 2 blood pressure medic ations, if not 3 blood pressure medications to control his pressure. I then spent quite a bit of time going over the drug interactions that he had, and alcohol on top of it. He spent with Social Work, and he has received a list of social support services through his [employer]iance [employer], which is [employer], as well as his 100% service connected disability. He should have enough support services to help him stop drinking, and to take his medications on a regular basis. Unfortunately, the patient's sugar was elevated on admission. Random glucose was 148. The next day fasting was 129 and on the day of discharge fasting was 117. A1c was 6.4%, so I told him he has a ne w diagnosis of diabetes mellitus. I gave him diet and restrictions. Also described what type of exe rcise he should be doing. This is all a beginning to prolonged education about diabetes and how to a void getting complications. So when he sees his primary care provider, he should get diabetic educat ion classes. At this time, he does not need medication. If he walks 20-30 minutes a day, cuts his c arbohydrates in half, he may be able to bring his A1c down or keep it where it is. He was also told not to drink any alcohol at all. Lastly, liver enzymes were elevated on admission, as well as alcohol level. This patient had acute a lcohol intake. Probable alcoholic hepatitis. To confirm that it was alcohol and not infectious, hep atitis panel was done and negative. AST started at 119 and ended at 47. ALT started at 124 and was 75. Bilirubin was 1.1. Ultrasound of the liver showed fatty liver. He is asked to follow up with his primary care provider and follow up with his psychiatrist. PHYSICAL EXAMINATION AT DISCHARGE VITAL SIGNS: Temperature of 36.7, pulse 72, blood pressure 141/100, respirations 18, 97% on room air . He is a 6 feet 1 inch tall [place] male at 112 kg. GENERAL: Alert, oriented, completely appropriate. Speech now lucid. None of the somnolence and let hargy seen that was seen on admission. NECK: Thick, difficult to assess for JVD. No stiffness. CHEST: Lungs are clear to auscultation and percussion and a huge chest. Diminished breath sounds at the bases. Regular rate and rhythm. There is no increased respiratory effort with talking or walki ng. ABDOMEN: Hugely obese, soft, nontender. EXTREMITIES: Both of his calves have scars on either side of them from previous fasciotomies. There is no clubbing, cyanosis or edema. NEUROLOGIC: He is ambulating in the room without any assistance, ataxia. Again, mentation is comple tely lucid. Greater than 30 minutes was spent coordinating discharge. TD: 12/31/2018 13:41
== END 2018-12-31 12:42 | disposition home or self-care (01) | DRG 917 ==
LOC: EDUNIT# → ED 15:57 → MS2 17:54
PROVIDERS: ADMIT Specialist; ATTEND Specialist
PROC: HZ2ZZZZ Detoxification Services for Substance Abuse Treatment (ICD-10-PCS; principal; 2018-12-29)
DX: T42.6X1A Poisoning by other antiepileptic and sedative-hypnotic drugs, accidental (unintentional), initial encounter (principal); G92 Toxic encephalopathy; F10.121 Alcohol abuse with intoxication delirium; T51.0X1A Toxic effect of ethanol, accidental (unintentional), initial encounter; Y92.009 Unspecified place in unspecified non-institutional (private) residence as the place of occurrence of the external cause; G47.33 Obstructive sleep apnea (adult) (pediatric); F43.10 Post-traumatic stress disorder, unspecified; F32.9 Major depressive disorder, single episode, unspecified; K70.10 Alcoholic hepatitis without ascites; E11.65 Type 2 diabetes mellitus with hyperglycemia; Y90.7 Blood alcohol level of 200-239 mg/100 ml; G89.29 Other chronic pain; E66.01 Morbid (severe) obesity due to excess calories; Z68.32 Body mass index [BMI] 32.0-32.9, adult; I10 Essential (primary) hypertension; F17.210 Nicotine dependence, cigarettes, uncomplicated; F17.220 Nicotine dependence, chewing tobacco, uncomplicated; K76.0 Fatty (change of) liver, not elsewhere classified
CPT/HCPCS: 36415; 51701; 76700; 80053; 80074; 80306; 80307; 80320; 80329; 81001; 81003; 82550; 83036; 83690; 84443; 85025; 85610; 87086; 93005; 96361; 96374; 99284

== ENCOUNTER 2019-01-28 08:43 | Outpatient (CLI) | payer OTHER ==
--- NOTE | 2019-01-28 16:07 | MRI Report ---
Reason: RT KNEE PAIN Procedure Date: 01/28/2019 Accession Number: [id number] / [id number] Procedure: MRI - Knee RT W/O CPT Code: FULL RESULT: EXAM: RIGHT KNEE MRI WITHOUT CONTRAST EXAM DATE: 01/28/2019 10:00 AM. CLINICAL HISTORY: Right knee pain COMPARISON: 11/24/2018 radiograph. TECHNIQUE: Multiplanar, multisequence T1-weighted and fluid-sensitive sequences of the knee without contrast. Other: None. FINDINGS: Bones: No fractures. Reactive. Articular marrow edema is in the medial patellar facet. The medial trochlear cartilage has periarticular reactive marrow edema. Minimal osteophyte formation is in the medial and patellofemoral compartments. Articular Cartilage: The medial patellar facet articular cartilage demonstrates mild surface irregularity. There is severe cartilage loss in the central and medial trochlea. The medial compartment articular cartilage is mildly thinned. The lateral compartment articular cartilage is intact. Medial Meniscus: The medial meniscus is intact. Lateral Meniscus: The lateral meniscus is intact. Cruciate Ligaments: The anterior and posterior cruciate ligaments are intact. Collateral Ligaments: The medial collateral and lateral collateral ligamentous structures are intact. Tendons: The quadriceps, patellar, semimembranosus, and popliteus tendons are unremarkable. Musculature: No edema or fatty atrophy. Other: No effusion. A multilobulated, moderate-sized popliteal cyst measures 4.2 x 1.4 x 4.7 cm. No loose bodies. The medial and lateral retinacula are intact. The subcutaneous tissues and fat pads are unremarkable. IMPRESSION: 1. Mild osteoarthritis, worst in the patellofemoral compartment. 2. Moderate-sized popliteal cyst. [facility] MUSCULOSKELETAL RADIOLOGY SECTION
== END 2019-01-28 08:44 | disposition home or self-care (01) ==
LOC: DI 08:43
PROVIDERS: ATTEND Orthopaedic Surgery
DX: M17.11 Unilateral primary osteoarthritis, right knee (principal); M71.21 Synovial cyst of popliteal space [Baker], right knee

== ENCOUNTER 2019-03-19 20:04 | Outpatient (CLI) | payer OTHER | END 2019-03-19 20:05 | disposition E | LOC: EMS 20:04 | PROVIDERS: ATTEND Surgery ==